=== PATIENT | male | born 1965 | race Caucasian/White ===

== ENCOUNTER 2019-03-29 18:34 | Emergency (ER) | payer OTHER ==
[2019-03-29] MEDS ORDERED: KETOROLAC 60 MG/2 ML VIAL IM STA (19:05)
--- NOTE | 2019-03-29 21:00 | ED ---
General Adult HPI - General Chief complaint: Fall Stated complaint: IHS-Ankle/Leg Injury Source: patient, RN notes reviewed, old records reviewed Mode of arrival: wheelchair Limitations: no limitations - History of Present Illness Initial comments: 53-year-old male patient plans ED for chief complaint of left fibular spiral fracture. Patient reports this occurred at work. Patient works that he slipped denies fell backwards felt a pop in his left distal fibular region. Patient went to occupational health where they diagnosed him with that while fibular fracture and placed him in a boot and made him nonweightbearing. She reports that they told him to come to the ER. Denies any trauma to head or neck. Denies any other complaints. Systemic: Pt denies fatigue, fever/chills, rash. Pt denies weakness, night sweats, weight loss. Neuro: Pt denies headache, visual disturbances, syncope or pre-syncope. HEENT: Pt denies ocular discharge or irritation, otalgia, rhinorrhea, pharyngitis or notable lymphadenopathy. Cardiopulmonary: Pt denies chest pain, SOB, heart palpitations, dyspnea on exertion. Abdominal/GI: Pt denies abdominal pain, n/v/d. : Pt denies dysuria, burning w/ urination, frequency/urgency. Denies new onset urinary or bowel incontinence. MSK: Pt denies myalgia, loss of strength or function in extremities. Neuro: Pt denies new onset weakness, paresthesias. - Related Data Previous Rx's Medication Instructions Recorded Hydrocodone/Acetaminophen [[place] 1 each PO Q6HR PRN 3 Days #12 tab 03/29/19 5-325] Allergies Allergy/AdvReac Type Severity Reaction Status Date / Time codeine Allergy Rash/Hives Verified 03/29/19 18:56 morphine Allergy Nausea & Verified 03/29/19 18:56 Vomiting & Diarrhea Penicillins Allergy Rash/Hives Verified 03/29/19 18:56 Review of Systems ROS Statement: Those systems with pertinent positive or pertinent negative responses have been documented in the HPI. ROS Other: All systems not noted in ROS Statement are negative. Past Medical History Past Medical History: Atrial Fibrillation, Diabetes Mellitus, Hypertension History of Any Multi-Drug Resistant Organisms: None Reported Past Surgical History: Hernia Repair Past Psychological History: No Psychological Hx Reported Smoking Status: Current every day smoker Past Alcohol Use History: Occasional Past Drug Use History: None Reported General Exam - General Exam Comments Initial Comments: Constitutional: NAD, AOX3, Pt has pleasant affect. HEENT: NC/AT, trachea midline, neck supple, no lymphadenopathy. Posterior pharynx non erythematous, without exudates. External ears appear normal, without discharge. Mucous membranes moist. Eyes PERRLA, EOM intact. There is no scleral icterus. No pallor noted. Cardiopulmonary: RRR, no murmurs, rubs or gallops, no JVD noted. Lungs CTAB in anterior and posterior don. No peripheral edema. Abdominal exam: Abdomen soft and non-distended. Abdomen non-tender to palpation in all 4 quadrants. Bowel sounds active in LLQ. No hepatosplenomegaly. No ecchymosis Neuro: CN II-XII grossly intact. No nuchal rigidity. No raccon eyes, no gaitan sign, no hemotympanum. No cervical spinal tenderness. MSK: Left distal fibula tender to palpation. No skin changes. Neurovascularly intact. No posterior calf tenderness bilaterally, homans sign negative bilaterally. Posterior tibialis and radial pulse +2 bilaterally. Sensation intact in upper and lower extremities. Full active ROM in upper and lower extremities, 5/5 stregnth. Limitations: no limitations Course Vital Signs 03/29/19 18:51 Temperature 97.9 F Pulse Rate 76 Respiratory 20 Rate Blood Pressure 146/92 O2 Sat by Pulse 97 Oximetry Medical Decision Making - Medical Decision Making 53-year-old male patient presents to ED with chief complaint of left distal tibia fracture, spiral fracture. Patient vital signs stable, afebrile. Physical exam slight tenderness to palpation in the area of concern. Neurovascularly intact. X-rays confirmed previously stated diagnosis. Patient will be discharged the splint that was provided to him by occupational health. Will be provided outpatient with. Follow-up. Return to ER if condition worsens. Case discussed with Dr. Meade. Disposition Clinical Impression: Left fibular fracture Disposition: HOME SELF-CARE Condition: Stable Instructions (If sedation given, give patient instructions): Leg Fracture (ED) Additional Instructions: Continued to wear splint provided to you. Use crutches do not bear weight on left lower extremity. Follow up with orthopedic consult tomorrow. Return to ER if condition worsens. Prescriptions: Hydrocodone/Acetaminophen [[place] 5-325] 1 each PO Q6HR PRN 3 Days #12 tab PRN Reason: Pain Is patient prescribed a controlled substance at d/c from ED?: No Referrals: Bing Murphy DO [Primary Care Provider] - 1-2 days Austin Pineda DO [Medical Doctor] - 1-2 days
[2019-03-29] MEDS ORDERED: Acetaminophen-Codeine 300-30mg TAB PO STA (21:05)
--- NOTE | 2019-03-29 21:11 | ED ---
Medical Decision Making - Medical Decision Making Patient requests one dose of pain meds for him to take at home. Patient was prescribed 1 Tylenol 3 that he will take when he gets home. Reports that he will not take it while driving. Patient reports that many years ago he had hives when he drank a "codeine cough syrup. Patient reports that he has had codeine multiple times in the last few years without issues. Disposition Clinical Impression: Left fibular fracture Disposition: HOME SELF-CARE Condition: Stable Instructions (If sedation given, give patient instructions): Leg Fracture (ED) Additional Instructions: Continued to wear splint provided to you. Use crutches do not bear weight on left lower extremity. Follow up with orthopedic consult tomorrow. Return to ER if condition worsens. Prescriptions: Hydrocodone/Acetaminophen [[place] 5-325] 1 each PO Q6HR PRN 3 Days #12 tab PRN Reason: Pain Is patient prescribed a controlled substance at d/c from ED?: No Referrals: Austin Pineda DO [Medical Doctor] - 1-2 days Bing Murphy DO [Primary Care Provider] - 1-2 days
[2019-03-29] MEDS ORDERED: IBUPROFEN 600 MG STARTER PACK 4 TAB BTL PO STA (21:14)
[2019-03-29 21:18] VITALS: BP 140/95; PULSE 72; RESP 18; TEMP 98.2
--- NOTE | 2019-03-29 23:21 | ED ---
Disposition Clinical Impression: Left fibular fracture Disposition: HOME SELF-CARE Condition: Stable Instructions (If sedation given, give patient instructions): Leg Fracture (ED) Additional Instructions: Continued to wear splint provided to you. Use crutches do not bear weight on left lower extremity. Follow up with orthopedic consult tomorrow. Return to ER if condition worsens. Prescriptions: Hydrocodone/Acetaminophen [[place] 5-325] 1 each PO Q6HR PRN 3 Days #12 tab PRN Reason: Pain Is patient prescribed a controlled substance at d/c from ED?: Yes When asked, does pt state using other controlled substances?: No If prescribed controlled substance>3 days was MAPS reviewed?: Prescribed <3 Days If opioid is for acute pain is fill amount 7 days or less?: Yes If Rx opioid, was Start Talking consent form obtained?: Yes Referrals: Austin Pineda DO [Medical Doctor] - 1-2 days Bing Murphy DO [Primary Care Provider] - 1-2 days
== END 2019-03-29 21:17 | disposition home or self-care (01) ==
LOC: EC 18:34
DX: S82.392A Other fracture of lower end of left tibia, initial encounter for closed fracture (principal); S82.442A Displaced spiral fracture of shaft of left fibula, initial encounter for closed fracture; F17.200 Nicotine dependence, unspecified, uncomplicated; Z88.0 Allergy status to penicillin; Z88.5 Allergy status to narcotic agent; W01.0XXA Fall on same level from slipping, tripping and stumbling without subsequent striking against object, initial encounter; Y93.89 Activity, other specified; Y92.69 Other specified industrial and construction area as the place of occurrence of the external cause; Y99.0 Civilian activity done for income or pay
CPT/HCPCS: 99284; 96372; J1885

== ENCOUNTER → 2019-04-06 | Outpatient (CLI) | payer OTHER | END | disposition home or self-care (01) | LOC: LABWHC1 15:57 | PROVIDERS: ATTEND Orthopaedic Surgery | DX: E55.9 Vitamin D deficiency, unspecified (principal); M25.572 Pain in left ankle and joints of left foot | CPT/HCPCS: 36415; 82306 ==

== ENCOUNTER → 2019-06-29 | Outpatient (CLI) | payer OTHER ==
--- NOTE | 2019-06-29 12:13 | CT ---
EXAMINATION TYPE: CT ankle LT wo con DATE OF EXAM: 06/29/2019 COMPARISON: 03/29/2019 outside x-ray HISTORY: left ankle pain post fall 2018 CT DLP: 277.2 mGycm Automated exposure control for dose reduction was used. TECHNIQUE: Axial images 2 mm thick sections. Reconstructed images in the coronal and sagittal planes. Three-D reconstructed images are performed on a separate computer by the technologist. FINDINGS: There is nonunion of a thin sliver calcification posterior to the tibia which may be a posterior tibi al avulsion. There is nonunion of a distal oblique fracture of the metadiaphyseal fibula. Some callus formation is evident. There does appear to be some fusion of the osseous callus posteriorly at this fracture site . No new fractures are identified. The ankle mortise appears intact. IMPRESSION: 1. NONUNION OF A METADIAPHYSEAL OBLIQUE FRACTURE DISTAL FIBULA. 2. A POSTERIOR TIBIAL AVULSION MADE HAVE BEEN PRESENT WITH NONUNION. DONOR SITE IS NOT IDENTIFIED
== END | disposition home or self-care (01) ==
LOC: RADCTMAIN 09:02
PROVIDERS: ATTEND Orthopaedic Surgery
DX: S88.112D Complete traumatic amputation at level between knee and ankle, left lower leg, subsequent encounter (principal); E11.9 Type 2 diabetes mellitus without complications; I48.91 Unspecified atrial fibrillation; F17.210 Nicotine dependence, cigarettes, uncomplicated

== ENCOUNTER → 2022-10-16 | Outpatient (CLI) | payer BC ==
--- NOTE | 2022-10-16 21:15 | PE ---
EXAMINATION TYPE: PET CT fusion skull to thigh DATE OF EXAM: 10/16/2022 CLINICAL INDICATION:Male, 57 years old with history of R91.8; TECHNIQUE: Following the intravenous administration of 12.7 mCi of F-18 FDG, whole body images are performed from the skull base to the midthigh. Images are reviewed on the computer in the coronal, a xial, and sagittal planes. Reconstructed rotating images are created on independent workstation and reviewed on the computer. A non-contrast CT is performed in conjunction with the PET scan. Glucose level 127 mg/dL COMPARISON: CT None, PET/CT None, FINDINGS: Mediastinal SUV mean is 1.2. Hepatic parenchyma SUV mean is 2.6. SKULL BASE AND NECK: No suspicious radiotracer activity. CHEST, MEDIASTINUM, AND HILAR REGION: * Right nasim-pulmonary hilum nodule Max SUV 5.8 which is difficult to measure given lack of IV contr ast and felt to measure at least 13 mm. * Right low paratracheal lymph node measuring 8 mm short axis and max SUV 2.9. * Prevascular space lymph node measuring 10 mm in short axis max SUV 4.9 ABDOMEN AND PELVIS: No suspicious radiotracer activity. Uptake seen within the bowel felt to be physi ologic. OSSEOUS STRUCTURES: No suspicious radiotracer activity. OTHER CT: Atherosclerosis of the arterial vasculature. Gynecomastia changes bilaterally. Aortic valve leaflet calcifications. Adenomatous hypertrophy changes of the left adrenal gland without FDG activi ty. Few scattered colonic diverticula. Fat-containing umbilical hernia is tiny. Left inguinal canal f at-containing hernia. Multilevel disc degeneration changes throughout spine. Left upper lobe air cyst . Mild centrilobular emphysema changes. 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 No additional disease visualized this at this time.
== END | disposition home or self-care (01) ==
LOC: RADPETMAIN 14:23
PROVIDERS: ATTEND Physician Assistant
DX: J43.2 Centrilobular emphysema (principal); R91.8 Other nonspecific abnormal finding of lung field
CPT/HCPCS: 78815; A9552